=== PATIENT | male | born 1990 | race Hispanic/Latino ===

== ENCOUNTER 2018-02-15 04:19 | Emergency (ER) | payer BC ==
--- NOTE | 2018-02-15 04:52 | ED PDOC ---
HPI: Skin/Bite Injury Time Seen by Provider: 02/15/18 04:43 Chief Complaint (Nursing): Abnormal Skin Integrity Chief Complaint (Provider): Laceration History Per: Patient History/Exam Limitations: no limitations Current Symptoms Are (Timing): Still Present Location Of Injury: Anterior: Face (Chin) Quality Of Symptoms: Painful Additional Complaint(s): 27 year old male presents to ED with complaints of a chin laceration sustained earlier today. Patient states he slipped in the bathroom, causing him to hit his chin possibly against a towel bar. Patient is unsure of what his chin impacted. (-) LOC, headache, vision changes, or vomiting. Confirms that tetanus is UTD. PCP: None Past Medical History Reviewed: Historical Data, Nursing Documentation, Vital Signs Vital Signs: Last Vital Signs Temp 97.4 F L 02/15/18 04:43 Pulse 51 L 02/15/18 04:43 Resp 14 02/15/18 04:43 BP 117/60 02/15/18 04:43 Pulse Ox 99 02/15/18 05:05 - Medical History PMH: No Chronic Diseases - Family History Family History: States: No Known Family Hx - Social History Alcohol: Social - Allergies Allergies/Adverse Reactions: Allergies Allergy/AdvReac Type Severity Reaction Status Date / Time No Known Allergies Allergy Verified 02/15/18 04:43 Review of Systems ROS Statement: Except As Marked, All Systems Reviewed And Found Negative Eyes: Negative for: Vision Change Gastrointestinal: Negative for: Vomiting Skin: Positive for: Other (chin laceration) Neurological: Negative for: Headache, Other ((-) LOC) Physical Exam - Reviewed Nursing Documentation Reviewed: Yes Vital Signs Reviewed: Yes - Physical Exam Appears: Positive for: Non-toxic, No Acute Distress Head Exam: Positive for: NORMOCEPHALIC. Negative for: ATRAUMATIC (3 cm superficial, linear laceration. No active bleeding.) Skin: Positive for: Normal Color, Warm, Dry Eye Exam: Positive for: Normal appearance, EOMI, PERRL Cardiovascular/Chest: Positive for: Regular Rate, Rhythm. Negative for: Murmur Respiratory: Positive for: Normal Breath Sounds. 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 Negative for: Motor/Sensory Deficits - ECG O2 Sat by Pulse Oximetry: 99 (RA) Pulse Ox Interpretation: Normal Medical Decision Making Medical Decision Makin Initial impression: laceration Initial plan: * Wound repair Although patient admits to alcohol use, patient is currently clinically sober. Patient notes drinking minimally. Wound was dressed and cleaned by ED Nurse Geovanny Payan, repaired by myself with dermabond with good alignment. Patient well appearing, steady gait, normal vitals upon discharge. Scribe Attestation: Documented by Magaly Miller acting as a scribe for Kt Luna MD. Scribe Attestation: All medical record entries made by the Scribe were at my direction and personally dictated by me. I have reviewed the chart and agree that the record accurately reflects my personal performance of the history, physical exam, medical decision making, and the department course for this patient. I have also personally directed, reviewed, and agree with the discharge instructions and disposition. Disposition - Clinical Impression Clinical Impression: Chin laceration - Disposition Referrals: [facility] [Outside] Disposition Time: 05:11 Condition: GOOD Instructions: Laceration Repair With Glue (DC), Minor Head Injury Forms: [facility] ([place]) Procedures - Time-Out Type of Procedure: Wound Repair Site of Procedure: Chin Correct Patient (with visual ID + MR# on ID Band): Yes Correct Procedure: Yes Correct Site Marked: NA X-Ray Marked: NA Medication Reconciliation / Bloodwork / Allergies Checked: Yes Physician Name: Kt Luna MD - Laceration/Wound Repair Chin Laceration Wound Length (cm): 3 Wound's Depth, Shape: superficial, linear Wound Explored: clean Wound Repaired With: Skin adhesive (Dermabond) Wound Complexity: Simple
[2018-02-15 05:22] VITALS: BP 120/64; PULSE 58; RESP 16; TEMP 97.8; O2SAT 100
== END 2018-02-15 05:14 | disposition home or self-care (01) ==
LOC: H.ER 04:19
DX: S01.81XA Laceration without foreign body of other part of head, initial encounter (principal); W19.XXXA Unspecified fall, initial encounter; Y92.002 Bathroom of unspecified non-institutional (private) residence as the place of occurrence of the external cause